=== PATIENT | male | born 1990 | race Caucasian/White ===

== ENCOUNTER 2021-04-18 22:16 | Emergency (ER) | payer OTHER ==
[~2021-04-18 22:16] MED LIST: ENTRESTO 24 MG1 EACH PO; K-TAB ER10 MEQ PO; LASIX40 MG PO; TOPROL XL25 MG PO
[2021-04-18 23:53] LABS: HEMOGLOBIN 16.1 gm/dl (14.0-17.5); RED BLOOD COUNT 5.61 M/UL (4.20-5.50); WHITE BLOOD COUNT 13.3 K/UL (4.5-11.0)
[2021-04-19 00:17] LABS: BUN/CREATININE RATIO 16 (0-10)
== END 2021-04-19 01:20 | disposition home or self-care (01) ==
LOC: ER1 22:16
PROVIDERS: Family Medicine
DX: I11.0 Hypertensive heart disease with heart failure (principal); I50.20 Unspecified systolic (congestive) heart failure; E66.01 Morbid (severe) obesity due to excess calories; Z79.899 Other long term (current) drug therapy; Z20.822 Contact with and (suspected) exposure to COVID-19
CPT/HCPCS: 71045; 80053; 82550; 82553; 83605; 83874; 83880; 84484; 85025; 93005; 96374; 99285; J1940; U0002